=== PATIENT | male | born 1980 | race Two or more races ===

== ENCOUNTER 2021-06-11 16:55 | Emergency (ER) | payer OTHER ==
[~2021-06-11] VITALS: Ht 177.8 cm; Wt 86.2 kg
[2021-06-11] MEDS ORDERED: PERCOCET 5-3251 EACH PO (22:45)
[2021-06-11] MEDS ORDERED: MEDROLPACK PO (22:45)
== END 2021-06-11 22:58 | disposition home or self-care (01) ==
LOC: ER 16:55
DX: M51.26 Other intervertebral disc displacement, lumbar region (principal)